=== PATIENT | male | born 1975 ===

== ENCOUNTER → 2016-06-02 | Outpatient (CLI) | payer OTHER ==
--- NOTE | 2016-06-02 16:01 | US ---
Testicular Sonogram Clinical Indications: Right testicular palpable Technique: Scrotal contents were imaged with the high-resolution transducer. Color and pulsed Doppl er/duplex were recorded on each side. Findings: Right testis measures 4.4 x 2.3 x 2.1 cm and left testis measures 4.5 x 2.9 x 2.1 cm. Both testes are homogeneous in echogenicity without intratesticular masses. Duplex/Doppler signals are nor mal, without evidence of torsion or inflammation. Right epididymal head demonstrates lobulated slight ly complex cyst measuring 2.3 x 1.9 x 1.3 cm some internal echoes and septation corresponding to the region of palpable concern.. No hydrocele or varicocele. Impression: 1. Right epididymal head complex spermatocele versus complex epididymal cyst measuring 2.3 x 1.9 x 1. 3 cm corresponding to the region of palpable concern. 2. No intratesticular masses. 3. No testicular torsion. Findings and recommendations discussed with Emergency Department physician, Dr. Melgoza at 1600 hour, t [place]. Final report concurs with initial preliminary interpretation.
== END ==
LOC: BMCIMAGING 14:05
PROVIDERS: ATTEND Family Medicine
DX: N50.3 Cyst of epididymis (principal)